=== PATIENT | female | born 2005 | race Two or more races ===

== ENCOUNTER 2025-05-29 23:24 | Emergency (ER) | payer OTHER ==
[~2025-05-29] VITALS: Ht 160 cm; Wt 48.0 kg
[2025-05-29 23:47] VITALS: BP 128/98; PULSE 88; RESP 20; TEMP 98.8
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
[2025-05-30 01:16] VITALS: O2SAT 100
== END 2025-05-30 01:12 | disposition home or self-care (01) ==
LOC: ER 23:29
DX: T74.21XA Adult sexual abuse, confirmed, initial encounter (principal); Y08.89XA Assault by other specified means, initial encounter